=== PATIENT | male | born 1960 | race African-American/Black ===

== ENCOUNTER 2018-11-05 15:08 | Emergency (ER) ==
[2018-11-05 15:11] VITALS: BP 219/124; TEMP 99.4; BMI 11.6
[2018-11-05] MEDS ORDERED: ROCEPHIN 1 GM PREMIX 1 GM in PREMIX 50 ML D5W 1 BAG IV STA (15:12)
[2018-11-05] MEDS ORDERED: TENIVAC IM ONE (15:12)
[2018-11-05] MEDS ORDERED: ZOFRAN 4 MG/2 ML IVP STA (15:15)
[2018-11-05] MEDS ORDERED: MORPHINE 2 MG/ML SYRINGE IVP STA (15:15)
[2018-11-05] MEDS ORDERED: MORPHINE 4 MG/ML VIAL IVP STA (15:17)
[2018-11-05] MEDS ORDERED: ROCEPHIN 1 GM PREMIX 50 ML IV ONE (15:22)
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
[2018-11-05] MEDS ORDERED: TRANDATE IVP STA ×2 (15:56→16:01)
[2018-11-05] MEDS ORDERED: TRANDATE ONE (16:03)
== END 2018-11-05 16:44 | disposition short-term general hospital (02) ==
LOC: ED 15:08
DX: S61.213A Laceration without foreign body of left middle finger without damage to nail, initial encounter (principal); S61.215A Laceration without foreign body of left ring finger without damage to nail, initial encounter; W45.8XXA Other foreign body or object entering through skin, initial encounter; W22.8XXA Striking against or struck by other objects, initial encounter
CPT/HCPCS: 90471; 90714; 96365; 96375; 99285

== ENCOUNTER 2018-11-05 16:40 | Outpatient (CLI) ==
[2018-11-05 15:11] VITALS: BMI 11.6
== END 2018-11-05 16:41 | disposition home or self-care (01) ==
LOC: AMBL 16:40
PROVIDERS: ATTEND Family Medicine
DX: S68.113A Complete traumatic metacarpophalangeal amputation of left middle finger, initial encounter (principal); S68.115A Complete traumatic metacarpophalangeal amputation of left ring finger, initial encounter; W45.8XXA Other foreign body or object entering through skin, initial encounter; F41.9 Anxiety disorder, unspecified; I10 Essential (primary) hypertension